=== PATIENT | female | born 1965 | race Caucasian/White ===

== ENCOUNTER → 2018-02-11 | Outpatient (CLI) | payer OTHER ==
--- NOTE | 2018-02-11 14:34 | XR ---
EXAMINATION TYPE: XR knee limited LT DATE OF EXAM: 02/11/2018 COMPARISON: None HISTORY: Osteoarthritis, chronic pain TECHNIQUE: 2 view left knee FINDINGS: Joint spaces appear preserved. No joint effusion is evident. No acute fractures are evident . Joint space narrowing is not evident. Follow-up exams can be acute trauma for continued pain. IMPRESSION: 1. Normal 2 view left knee
== END | disposition home or self-care (01) ==
LOC: RADXRMAIN 09:51
PROVIDERS: ATTEND Family Medicine
DX: M25.562 Pain in left knee (principal)